=== PATIENT | female | born 1930 | race Asian ===

== ENCOUNTER → 2017-08-22 | Outpatient (CLI) | payer MEDICARE, OTHER ==
[~2017-08-22] VITALS: Ht 147.3 cm; Wt 54.0 kg
[~2017-08-22] MED LIST: ALEN70TA69 PO; AMLO-343 PO; AMLO-512 PO; ASPI-1182 PO; ASPI-825 PO; ATOR40TA28 PO; CALC-484 PO; ESOM40CA PO; MELO-106 PO; METF10004 PO; MULT-952 PO; NITR1PAT68 TD; OMEP40CA12 PO; PIOG30TA10 PO; SITA25 PO; SITA50 PO; TELM40 PO; TELM80TA2 PO
[2017-08-22 14:21] VITALS: BP 110/64
== END | disposition home or self-care (01) ==
LOC: SRCNTR 14:00
PROVIDERS: ATTEND Internal Medicine Cardiovascular Disease
DX: I10 Essential (primary) hypertension (principal); I25.10 Atherosclerotic heart disease of native coronary artery without angina pectoris; E11.9 Type 2 diabetes mellitus without complications; E78.5 Hyperlipidemia, unspecified
CPT/HCPCS: 93005; G0463

== ENCOUNTER → 2017-08-29 | Outpatient (CLI) | payer MEDICARE, OTHER ==
[~2017-08-29] MED LIST changes: -ALEN70TA69 PO; -AMLO-343 PO; -ASPI-825 PO; -CALC-484 PO; -MELO-106 PO; -MULT-952 PO; -OMEP40CA12 PO; -SITA25 PO; -TELM40 PO
== END | disposition home or self-care (01) ==
LOC: RADPV 08:36
PROVIDERS: ATTEND Internal Medicine Cardiovascular Disease
DX: I50.1 Left ventricular failure, unspecified (principal)
CPT/HCPCS: 93306

== ENCOUNTER → 2017-09-23 | Outpatient (CLI) | payer MEDICARE, OTHER ==
[~2017-09-23] VITALS: Ht 147.3 cm; Wt 52.5 kg
[2017-09-23 10:34] VITALS: BP 117/62
== END | disposition home or self-care (01) ==
LOC: SRCNTR 10:31
PROVIDERS: ATTEND Internal Medicine Cardiovascular Disease
DX: I25.10 Atherosclerotic heart disease of native coronary artery without angina pectoris (principal); I10 Essential (primary) hypertension; E78.5 Hyperlipidemia, unspecified; E11.9 Type 2 diabetes mellitus without complications
CPT/HCPCS: G0463

== ENCOUNTER → 2017-12-02 | Outpatient (CLI) | payer MEDICARE, OTHER ==
[~2017-12-02] VITALS: Ht 147.3 cm; Wt 52.5 kg
[~2017-12-02] MED LIST changes: +METF-446 PO; -METF10004 PO
[2017-12-02 11:38] VITALS: BP 133/66
== END | disposition home or self-care (01) ==
LOC: SRCNTR 10:54
PROVIDERS: ATTEND Internal Medicine Cardiovascular Disease
DX: I25.10 Atherosclerotic heart disease of native coronary artery without angina pectoris (principal); R07.81 Pleurodynia; I10 Essential (primary) hypertension; E11.9 Type 2 diabetes mellitus without complications; E78.5 Hyperlipidemia, unspecified
CPT/HCPCS: G0463